=== PATIENT | male | born 1990 | race Two or more races ===

== ENCOUNTER 2017-04-11 11:28 | Inpatient (IN) | payer MEDICAID ==
[~2017-04-11] VITALS: Ht 149.9 cm; Wt 34.5 kg
[~2017-04-11 11:28] MED LIST: BACL-63 OR; FERR325T47 PO; METO25TA5 OR; PHEN125S PO
[2017-04-11 12:17] LABS: Basophils # (auto) 0.1 uL; Basophils % (auto) 2.3 % (0.0-2.0); DEFINITIVE VIEW TRANSMISSION; Eosinophils # (auto) 0.2 uL; Eosinophils % (auto) 4.9 % (0.0-7.0); Hematocrit 38.4 % (41.0-53.0); Lymphocytes # (auto) 1.2 uL; Lymphocytes % (auto) 27.1 % (10.0-50.0); Mean Corpuscular Hemoglobin 25.9 pg (28.0-32.0); Mean Corpuscular Hgb Conc. 31.2 g/dL (32.0-36.0); Mean Platelet Volume 9.2 fL (7.4-10.4); Monocytes # (auto) 0.3 uL; Monocytes % (auto) 8.2 % (0.0-12.0); Neutrophils # (auto) 2.5 uL; Neutrophils % (auto) 57.5 % (37.0-80.0); Platelet Count (auto) 216 10^3/uL (140-450); Red Cell Distribution Width 14.6 % (11.6-16.0); White Blood Cell 4.3 10^3/uL (4.4-10.8)
[2017-04-11 12:36] LABS: Albumin 4.1 g/dL (3.4-5.0); Calcium 9.2 mg/dL (8.5-10.1); Potassium 3.9 mmol/L (3.5-5.1)
[2017-04-11 12:40] LABS: BUN/Creatinine Ratio 27.1; Bilirubin, Total 0.1 mg/dL (0.2-1.0)
[2017-04-11] MEDS ORDERED: SODIUM CHLORIDE 0.9% 1,000 ML IVB ONE ×2 (13:40→14:26)
[2017-04-11] MEDS ORDERED: cefTRIAXone 1GM/50ML D5W 50 ML IV ONE (14:30)
[2017-04-11 15:04] LABS: INR 0.96 (0.9-1.15); Prothrombin Time 10.5 sec (9.37-12.3)
[2017-04-11] MEDS ORDERED: PHENYTOIN 100 MG/4 ML SUSP PO ONE (15:30)
[2017-04-11] MEDS ORDERED: MORPHINE SULF INJ 2 MG/ML SYRINGE 1ML IV PRN ×2 (16:45)
[2017-04-11] MEDS ORDERED: ACETAMINOPHEN 500 MG TAB PO PRN (16:45)
[2017-04-11] MEDS ORDERED: LACTULOSE 20Gm/30ML SOLN PO PRN (16:45)
[2017-04-11] MEDS ORDERED: LORazepam 0.5 MG TAB PO PRN (16:45)
[2017-04-11] MEDS ORDERED: ALBUTEROL SULF 2.5 MG/0.5ML(0.5%) NEB SOLN NEB PRN (16:45)
[2017-04-11] MEDS ORDERED: NITROGLYCERIN 0.4 MG SL TAB SL PRN (16:45)
[2017-04-11] MEDS ORDERED: HYDROcodone-ACET 5/325MG TAB PO PRN (16:45)
[2017-04-11] MEDS ORDERED: LORazepam 2MG/ML-1ML VIAL IV PRN (16:45)
[2017-04-11] MEDS ORDERED: TEMAZEPAM 15 MG CAP PO PRN (16:45)
[2017-04-11] MEDS: IPRATROPIUM BROM 0.5 MG/2.5ML INH SOL NEB SCH (18:00)
[2017-04-11] MEDS: ALBUTEROL SULF 2.5 MG/0.5ML(0.5%) NEB SOLN NEB SCH (18:00)
[2017-04-11] MEDS: SODIUM CHLORIDE 0.9% 1,000 ML IV SCH (18:27)
[2017-04-11] MEDS: ENOXAPARIN SOD 60 MG/0.6 ML SYRINGE SC SCH (18:28)
[2017-04-11] MEDS: LEVOFLOXACIN 500MG 100 ML IV SCH (18:28)
[2017-04-11] MEDS: METOPROLOL TARTRATE 25 MG TAB PO SCH (20:44)
[2017-04-11] MEDS ORDERED: PHENYTOIN 100 MG/4 ML SUSP GT SCH (22:00)
[2017-04-11] MEDS ORDERED: PHENYTOIN 100 MG/4 ML SUSP PO SCH (22:00)
[2017-04-11] MEDS: CLINDAMYCIN 600MG IV 50 ML IV SCH (22:09)
[2017-04-11] MEDS: LEVETIRACETAM 500 MG/5ML ORAL SOLN UD GT SCH (22:10)
[2017-04-11] MEDS: PHENYTOIN 100 MG/4 ML SUSP PO SCH (23:40)
[2017-04-12] MEDS: ALBUTEROL SULF 2.5 MG/0.5ML(0.5%) NEB SOLN NEB SCH ×4 (00:12→19:54)
[2017-04-12] MEDS: IPRATROPIUM BROM 0.5 MG/2.5ML INH SOL NEB SCH ×4 (00:12→19:54)
[2017-04-12] MEDS: SODIUM CHLORIDE 0.9% 1,000 ML IV SCH ×2 (06:14→19:33)
[2017-04-12] MEDS: CLINDAMYCIN 600MG IV 50 ML IV SCH ×3 (06:23→22:11)
[2017-04-12] MEDS: LEVETIRACETAM 500 MG/5ML ORAL SOLN UD GT SCH ×3 (06:26→22:00)
[2017-04-12] MEDS: PHENYTOIN 100 MG/4 ML SUSP PO SCH ×3 (06:27→22:11)
[2017-04-12] MEDS: LEVOFLOXACIN 500MG 100 ML IV SCH (10:09)
[2017-04-12] MEDS: METOPROLOL TARTRATE 25 MG TAB PO SCH ×2 (10:10→22:10)
[2017-04-12 17:29] VITALS: BP 121/93
[2017-04-12] MEDS: ENOXAPARIN SOD 60 MG/0.6 ML SYRINGE SC SCH (18:18)
[2017-04-12 20:00] VITALS: BP 108/72
[2017-04-12 21:30] VITALS: BP 108/72
[2017-04-13 05:00] VITALS: BP 131/95
[2017-04-13] MEDS: CLINDAMYCIN 600MG IV 50 ML IV SCH ×2 (05:52→14:00)
[2017-04-13 05:54] LABS: Basophils # (auto) 0 uL; Basophils % (auto) 0.5 % (0.0-2.0); DEFINITIVE VIEW TRANSMISSION; Eosinophils # (auto) 0.2 uL; Eosinophils % (auto) 5.5 % (0.0-7.0); Hematocrit 36.7 % (41.0-53.0); Hemoglobin 11.8 g/dL (13.5-17.5); Lymphocytes # (auto) 1.1 uL; Lymphocytes % (auto) 28.4 % (10.0-50.0); Mean Corpuscular Hemoglobin 26.5 pg (28.0-32.0); Mean Platelet Volume 8.7 fL (7.4-10.4); Monocytes # (auto) 0.5 uL; Monocytes % (auto) 11.9 % (0.0-12.0); Neutrophils # (auto) 2.1 uL; Neutrophils % (auto) 53.7 % (37.0-80.0); Platelet Count (auto) 183 10^3/uL (140-450); Red Cell Distribution Width 14.9 % (11.6-16.0); SUSPECT VIEW TRANSMISSION; White Blood Cell 3.9 10^3/uL (4.4-10.8)
[2017-04-13 06:23] LABS: BUN/Creatinine Ratio 37.5; Calcium 8.3 mg/dL (8.5-10.1); Potassium 3.9 mmol/L (3.5-5.1)
[2017-04-13] MEDS: ALBUTEROL SULF 2.5 MG/0.5ML(0.5%) NEB SOLN NEB SCH ×3 (07:16→12:28)
[2017-04-13] MEDS: IPRATROPIUM BROM 0.5 MG/2.5ML INH SOL NEB SCH ×3 (07:16→12:28)
[2017-04-13 08:00] VITALS: BP 118/84
[2017-04-13 09:31] VITALS: BP 118/84
[2017-04-13] MEDS: PHENYTOIN 100 MG/4 ML SUSP PO SCH (10:00)
[2017-04-13] MEDS: LEVETIRACETAM 500 MG/5ML ORAL SOLN UD GT SCH (10:00)
[2017-04-13] MEDS: LEVOFLOXACIN 500MG 100 ML IV SCH (11:15)
[2017-04-13] MEDS: METOPROLOL TARTRATE 25 MG TAB PO SCH (11:15)
[2017-04-13] MEDS: SODIUM CHLORIDE 0.9% 1,000 ML IV SCH (11:37)
[2017-04-13 11:46] VITALS: BP 139/82
[2017-04-13 12:57] VITALS: BP 139/82
== END 2017-04-13 15:00 | disposition home or self-care (01) | DRG 53 ==
LOC: EDBD 11:28 → ER 11:36 → TELE 11:37 → TELE-WESTW 04-12 17:01
PROVIDERS: ADMIT Internal Medicine; ATTEND Family Medicine
DX: G40.419 Other generalized epilepsy and epileptic syndromes, intractable, without status epilepticus (principal); J18.9 Pneumonia, unspecified organism; Z93.0 Tracheostomy status; G80.0 Spastic quadriplegic cerebral palsy; Z74.01 Bed confinement status; Z82.49 Family history of ischemic heart disease and other diseases of the circulatory system; Z83.3 Family history of diabetes mellitus; F41.9 Anxiety disorder, unspecified; Z71.89 Other specified counseling; Z88.1 Allergy status to other antibiotic agents; D64.9 Anemia, unspecified
CPT/HCPCS: 36415; 71010; 80048; 80053; 80185; 82542; 83605; 83735; 85025; 85610; 85652; 85730; 87040; 94640; 94761; 96361; 96365; 96366; 96375; J0696; J1956; J3490

== ENCOUNTER 2017-10-21 12:23 | Emergency (ER) | payer MEDICAID ==
[2017-10-21 13:52] VITALS: BP 152/91
== END 2017-10-21 14:56 | disposition home or self-care (01) ==
LOC: EDBD 12:23 → ER 12:23
DX: G80.9 Cerebral palsy, unspecified (principal)
CPT/HCPCS: 70490; 71250

== ENCOUNTER 2018-04-30 11:48 | Inpatient (IN) | payer MEDICAID ==
[~2018-04-30] VITALS: Ht 152.4 cm; Wt 32.2 kg
[2018-04-30 12:53] LABS: Hematocrit 28.6 % (41.0-53.0); Hemoglobin 7.5 g/dL (13.5-17.5); Mean Corpuscular Hgb Conc. 26.3 g/dL (32.0-36.0); Mean Corpuscular Volume 60.8 fL (80.0-100.0); Platelet Count (auto) 197 10^3/uL (140-450); Red Blood Cells 4.71 10^6/uL (4.5-5.90); Red Cell Distribution Width 19.3 % (11.8-14.3); White Blood Cell 4.2 10^3/uL (4.4-10.8)
[2018-04-30 13:14] LABS: Albumin 3.3 g/dL (3.4-5.0); Bilirubin, Total 0.1 mg/dL (0.2-1.0); Calcium 8.5 mg/dL (8.5-10.1); Potassium 3.7 mmol/L (3.5-5.1); Total Protein 7.9 g/dL (6.4-8.2)
[2018-04-30] MEDS ORDERED: LEVETIRACETAM INJ 500 MG in D5W 5% 100 ML IV ONE (13:30)
[2018-04-30 14:02] LABS: Band Neutrophils % (manual) 0; Basophils % (manual) 0 (0.0-2.0); Blast Cells 0; Eosinophils % (manual) 0 (0-7); Metamyelocytes % 0; Myelocytes % 0; Promyelocytes % 0; Reactive Lymphocytes 0
[2018-04-30 14:03] LABS: Lymphocytes % (manual) 19 (10.0-50.0); Monocytes % (manual) 5 (0-12)
[2018-04-30] MEDS ORDERED: BACLOFEN 10 MG TAB PO PRN (15:30)
[2018-04-30] MEDS ORDERED: LORazepam 2MG/ML-1ML VIAL IV PRN (15:30)
[2018-04-30] MEDS ORDERED: LACTULOSE 20Gm/30ML SOLN PO PRN (15:30)
[2018-04-30] MEDS ORDERED: TEMAZEPAM 15 MG CAP PO PRN (15:45)
[2018-04-30] MEDS ORDERED: NITROGLYCERIN 0.4 MG SL TAB SL PRN (15:45)
[2018-04-30] MEDS ORDERED: HYDROcodone-ACET 5/325MG TAB PO PRN (15:45)
[2018-04-30] MEDS ORDERED: ACETAMINOPHEN 325 MG TAB PO PRN (15:45)
[2018-04-30] MEDS ORDERED: ONDANSETRON HCL 4 MG/2 ML VIAL IV PRN (15:45)
[2018-04-30] MEDS ORDERED: MORPHINE SULF(PF) 0.5MG/ML 10ML VIAL IV PRN (15:45)
[2018-04-30 16:03] LABS: Urine WBC None Seen /hpf (0 - 3)
[2018-04-30] MEDS: MULTIPLE VITAMIN TAB PO SCH (16:28)
[2018-04-30] MEDS: PHENYTOIN 100 MG/4 ML SUSP PO SCH ×2 (16:28→22:25)
[2018-04-30 16:39] LABS: Urine Amorphous Crystal FEW /hpf (None Seen); Urine Bacteria NONE SEEN /hpf (None Seen); Urine Blood TRACE /uL (Negative); Urine Mucus FEW (None Seen); Urine Specific Gravity 1.019 (1.001-1.035)
[2018-04-30] MEDS: BOOST PLUS 8 ounce PO SCH ×2 (18:22→23:29)
[2018-04-30 19:05] LABS: Hematocrit 23.8 % (41.0-53.0)
[2018-04-30 19:08] LABS: Hemoglobin 6.4 g/dL (13.5-17.5)
[2018-04-30 21:46] VITALS: BP 151/103
[2018-04-30 22:00] VITALS: BP 151/103
[2018-04-30] MEDS ORDERED: METOPROLOL TARTRATE 25 MG TAB PO SCH (22:00)
[2018-04-30] MEDS: LEVETIRACETAM 500 MG/5ML ORAL SOLN UD PO SCH (22:00)
[2018-04-30] MEDS: SODIUM CHLOR 0.9% PF (SALINE LOCK) 10ML VIAL/SYR IV SCH (22:25)
[2018-04-30] MEDS ORDERED: LEVE250T18 PO (23:39)
[2018-05-01] VITALS (11 sets, daily range): BP systolic 122–153; BP diastolic 42–115
[2018-05-01] MEDS ORDERED: METOPROLOL TARTRATE 25 MG TAB PO ONE (00:30)
[2018-05-01 05:37] LABS: Hematocrit 31.7 % (41.0-53.0); Mean Corpuscular Hemoglobin 18.9 pg (28.0-32.0); Mean Corpuscular Hgb Conc. 28.3 g/dL (32.0-36.0); Mean Corpuscular Volume 66.8 fL (80.0-100.0); Red Blood Cells 4.75 10^6/uL (4.5-5.90); White Blood Cell 4.5 10^3/uL (4.4-10.8)
[2018-05-01 05:39] LABS: Band Neutrophils % (manual) 0; Basophils % (manual) 0 (0.0-2.0); Blast Cells 0; Eosinophils % (manual) 0 (0-7); Metamyelocytes % 0; Myelocytes % 0; Platelet Count (auto) 206 10^3/uL (140-450); Promyelocytes % 0; Reactive Lymphocytes 0; Red Cell Distribution Width 25.3 % (11.8-14.3)
[2018-05-01 05:46] LABS: Albumin 3.1 g/dL (3.4-5.0); BUN/Creatinine Ratio 40.7; Calcium 8.4 mg/dL (8.5-10.1); Potassium 4.2 mmol/L (3.5-5.1)
[2018-05-01 05:49] LABS: Bilirubin, Total 0.3 mg/dL (0.2-1.0); Total Protein 7.4 g/dL (6.4-8.2)
[2018-05-01 05:56] LABS: Lymphocytes % (manual) 21 (10.0-50.0); Monocytes % (manual) 7 (0-12)
[2018-05-01] MEDS: BOOST PLUS 8 ounce PO SCH ×4 (06:00→23:06)
[2018-05-01] MEDS: PHENYTOIN 100 MG/4 ML SUSP PO SCH ×3 (06:34→21:14)
[2018-05-01] MEDS: SODIUM CHLOR 0.9% PF (SALINE LOCK) 10ML VIAL/SYR IV SCH ×3 (06:52→21:16)
[2018-05-01] MEDS: METOPROLOL TARTRATE 25 MG TAB PO SCH ×2 (09:32→21:16)
[2018-05-01] MEDS: MULTIPLE VITAMIN TAB PO SCH (09:32)
[2018-05-01] MEDS: LEVETIRACETAM 500 MG/5ML ORAL SOLN UD PO SCH ×2 (09:42→21:15)
[2018-05-01 12:51] LABS: INR 0.93 (0.9-1.15)
[2018-05-01] MEDS ORDERED: SODIUM FERR GLUC 62.5MG/5ML 125 MG in SODIUM CHL 0.9% 100 ML IV ONE (13:15)
[2018-05-01] MEDS ORDERED: LEVALBUTEROL HYDROCHLORIDE 0.63 MG/3 ML NEB SOLN NEB SCH (13:45)
[2018-05-01] MEDS ORDERED: LEVOFLOXACIN 500MG 100 ML IV ONE (13:45)
[2018-05-01] MEDS: LEVALBUTEROL HCL 1.25 MG/0.5 ML NEB SOLN NEB SCH (22:47)
[2018-05-02] MEDS: LEVALBUTEROL HCL 1.25 MG/0.5 ML NEB SOLN NEB SCH ×2 (03:45→06:23)
[2018-05-02 04:13] VITALS: BP 139/103
[2018-05-02] MEDS: BOOST PLUS 8 ounce PO SCH ×2 (05:30→12:00)
[2018-05-02] MEDS: SODIUM CHLOR 0.9% PF (SALINE LOCK) 10ML VIAL/SYR IV SCH ×2 (05:30→14:00)
[2018-05-02] MEDS: PHENYTOIN 100 MG/4 ML SUSP PO SCH ×2 (05:34→14:00)
[2018-05-02 06:24] LABS: White Blood Cell 5.5 10^3/uL (4.4-10.8)
[2018-05-02 06:26] LABS: Hematocrit 30.9 % (41.0-53.0); Hemoglobin 8.9 g/dL (13.5-17.5); Mean Corpuscular Hemoglobin 19.3 pg (28.0-32.0); Mean Corpuscular Hgb Conc. 28.9 g/dL (32.0-36.0); Mean Corpuscular Volume 66.8 fL (80.0-100.0); Platelet Count (auto) 158 10^3/uL (140-450); Red Blood Cells 4.63 10^6/uL (4.5-5.90)
[2018-05-02 06:27] LABS: Red Cell Distribution Width 25.6 % (11.8-14.3)
[2018-05-02 06:28] LABS: Band Neutrophils % (manual) 0
[2018-05-02 06:29] LABS: Basophils % (manual) 0 (0.0-2.0); Blast Cells 0; Eosinophils % (manual) 0 (0-7); Promyelocytes % 0; Reactive Lymphocytes 0
[2018-05-02 07:40] LABS: Lymphocytes % (manual) 12 (10.0-50.0); Metamyelocytes % 2; Monocytes % (manual) 6 (0-12); Myelocytes % 1
[2018-05-02 09:00] VITALS: BP 136/84
[2018-05-02] MEDS: MULTIPLE VITAMIN TAB PO SCH (10:00)
[2018-05-02] MEDS ORDERED: LEVOFLOXACIN 500MG 100 ML IV SCH (10:00)
[2018-05-02] MEDS ORDERED: FERROUS SULFATE 300 MG/5 ML ORAL LIQ PO ONE (10:30)
[2018-05-02 11:39] VITALS: BP 136/84
[2018-05-02] MEDS: METOPROLOL TARTRATE 25 MG TAB PO SCH (12:00)
[2018-05-02] MEDS ORDERED: SODIUM FERR GLUC 62.5MG/5ML 125 MG in SODIUM CHL 0.9% 100 ML IV SCH (12:00)
[2018-05-02] MEDS: LEVETIRACETAM 500 MG/5ML ORAL SOLN UD PO SCH (12:01)
[2018-05-02 12:13] VITALS: BP 144/97
[2018-05-02 12:15] VITALS: BP 136/84
[2018-05-02 13:00] VITALS: BP 134/90
== END 2018-05-02 15:12 | disposition home or self-care (01) | DRG 53 ==
LOC: EDBD 11:48 → ER 11:48 → TELE 11:49 → TELE-EAST 19:50
PROVIDERS: ADMIT Internal Medicine; ATTEND Internal Medicine
PROC: 30233N1 Transfusion of Nonautologous Red Blood Cells into Peripheral Vein, Percutaneous Approach (ICD-10-PCS; principal; 2018-05-01)
DX: G40.209 Localization-related (focal) (partial) symptomatic epilepsy and epileptic syndromes with complex partial seizures, not intractable, without status epilepticus (principal); E43 Unspecified severe protein-calorie malnutrition; L89.329 Pressure ulcer of left buttock, unspecified stage; J96.11 Chronic respiratory failure with hypoxia; Z93.0 Tracheostomy status; Z99.81 Dependence on supplemental oxygen; G80.9 Cerebral palsy, unspecified; D50.9 Iron deficiency anemia, unspecified; K59.00 Constipation, unspecified; I10 Essential (primary) hypertension; Z74.01 Bed confinement status; Z83.3 Family history of diabetes mellitus; Z88.1 Allergy status to other antibiotic agents; Z82.49 Family history of ischemic heart disease and other diseases of the circulatory system; Z68.1 Body mass index [BMI] 19.9 or less, adult
CPT/HCPCS: 36415; 36430; 70450; 71045; 80053; 80164; 81001; 82542; 83540; 83550; 84443; 85007; 85014; 85018; 85027; 85610; 85730; 86850; 86900; 86901; 86920; 87086; 94640; 96365; J1956; J7060